=== PATIENT | female | born 1995 | race Two or more races ===

== ENCOUNTER 2017-04-05 22:38 | Emergency (ER) | payer MEDICAID ==
[~2017-04-05] VITALS: Ht 162.6 cm; Wt 78.5 kg
[2017-04-05 22:41] VITALS: BP 107/75
== END 2017-04-06 01:21 | disposition left against medical advice (07) ==
LOC: ER 22:38
DX: R68.84 Jaw pain (principal); R51 Headache; W22.8XXA Striking against or struck by other objects, initial encounter; Y93.89 Activity, other specified; Y99.8 Other external cause status; Y92.89 Other specified places as the place of occurrence of the external cause; Z53.21 Procedure and treatment not carried out due to patient leaving prior to being seen by health care provider